=== PATIENT | male | born 1965 | race Caucasian/White ===

== ENCOUNTER 2020-04-04 14:34 | Inpatient (IN) | payer OTHER ==
[2020-04-04] MEDS ORDERED: ARICEPT5 M1 PO (16:00)
[2020-04-04] MEDS ORDERED: ACIDOPHILUS-PE1 EAC2 PO (16:00)
[2020-04-04] MEDS ORDERED: BENADRYL25 M2 PO (16:01)
[2020-04-04] MEDS ORDERED: CELEXA20 MG PO (16:04)
[2020-04-04] MEDS ORDERED: CARDURA4 MG PO (16:05)
[2020-04-04] MEDS ORDERED: CYMBALTA60 MG PO (16:05)
[2020-04-04] MEDS ORDERED: FENOFIBRATE MI200 MG PO (16:06)
[2020-04-04] MEDS ORDERED: MULTIVITAMINS1 EAC5 PO (16:07)
[2020-04-04] MEDS ORDERED: NORTRIPTYLINE H50 M1 PO (16:08)
[2020-04-04] MEDS ORDERED: OMEPRAZOLE20 M2 PO (16:10)
[2020-04-04] MEDS ORDERED: FOLIXAPURE5000 UNIT PO (16:14)
[2020-04-04] MEDS ORDERED: BACLOFEN20 M1 PO (16:20)
[2020-04-04] MEDS ORDERED: TRULANCE PO (16:37)
[2020-04-04] MEDS ORDERED: OMNICEF300 MG PO (16:38)
[2020-04-04] MEDS ORDERED: NEURONTIN800 MG PO (16:42)
[2020-04-04] MEDS ORDERED: MIRALAX119 GM PO (16:42)
[2020-04-04] MEDS ORDERED: MACRODANTIN100 M1 PO (16:43)
[2020-04-04] MEDS ORDERED: ATARAX,VISTARIL50 MG PO (16:45)
[2020-04-04] MEDS ORDERED: CITROMA296 ML PO (16:52)
[2020-04-04] MEDS ORDERED: ZOFRAN4 MG PO (16:54)
[2020-04-04] MEDS ORDERED: IBUPROFEN600 MG PO (16:54)
[2020-04-04 17:22] VITALS: BP 113/63
[2020-04-04 19:49] VITALS: BP 115/64
[2020-04-05 06:45] LABS: ALBUMIN 3.6 gm/dl (3.1-4.5); ALKALINE PHOSPHATASE 141 U/L (45-117); BUN 20 mg/dl (7-24); CHLORIDE 111 mmol/L (98-107); CHOLESTEROL 247 mg/dL (<200); CREATININE 0.93 mg/dL (0.70-1.30); HDL CHOLESTEROL 58 mg/dl (40-60); LDL CHOLESTEROL 153 mg/dL (9-159); POTASSIUM 3.8 mmol/L (3.5-5.1); SGOT/AST 37 IU/L (3-35); SGPT/ALT 53 U/L (12-78); SODIUM 143 mmol/L (136-145); TOTAL PROTEIN 7.3 gm/dL (6.4-8.2); TRIGLYCERIDES 178 mg/dl (<150); VLDL CHOLESTEROL 36 mg/dL (6-40)
[2020-04-05 07:53] VITALS: BP 110/64
[2020-04-05 13:33] LABS: BILIRUBIN 1+ (Negative); BLOOD Negative (Negative); CLARITY Clear (Clear); COLOR Dark Yellow (Yellow); GLUCOSE Negative (Negative); KETONE Negative (Negative); LEUKO ESTERASE Trace (Negative); NITRITE Negative (Negative); SPECIFIC GRAVITY 1.025 (1.001-1.030)
[2020-04-05 13:42] LABS: BACTERIA TRACE; EPITHELIAL CELLS 0-2; MUCOUS 3+
[2020-04-05 20:00] VITALS: BP 105/65
[2020-04-06 07:42] VITALS: BP 156/79
[2020-04-06] MEDS ORDERED: OMNICEF300 MG PO (08:48)
[2020-04-06 19:08] VITALS: BP 131/67
[2020-04-07 08:00] VITALS: BP 110/67
[2020-04-07 20:38] VITALS: BP 120/72
[2020-04-08 07:41] VITALS: BP 130/75
[2020-04-08 20:00] VITALS: BP 112/78
[2020-04-09 08:42] VITALS: BP 118/81
[2020-04-09 09:07] LABS: NEURONTIN (GABAPENTIN) 18.8 ug/mL (4.0-16.0)
[2020-04-09 19:54] VITALS: BP 129/89
[2020-04-10 07:43] VITALS: BP 127/69
[2020-04-10 20:00] VITALS: BP 104/58
[2020-04-11 07:50] VITALS: BP 110/64
[2020-04-11 18:53] VITALS: BP 106/57
[2020-04-12 06:57] VITALS: BP 109/58
[2020-04-12 20:00] VITALS: BP 129/82
[2020-04-13 07:26] VITALS: BP 116/88
[2020-04-13 19:10] VITALS: BP 123/75
[2020-04-14 06:32] LABS: BUN 19 mg/dl (7-24); CHLORIDE 109 mmol/L (98-107); CREATININE 0.84 mg/dL (0.70-1.30); POTASSIUM 4.3 mmol/L (3.5-5.1); SODIUM 141 mmol/L (136-145)
[2020-04-14 07:46] VITALS: BP 117/66
[2020-04-14 11:09] LABS: BILIRUBIN Negative (Negative); BLOOD Negative (Negative); CLARITY Clear (Clear); COLOR Yellow (Yellow); GLUCOSE Negative (Negative); KETONE Negative (Negative); LEUKO ESTERASE Negative (Negative); NITRITE Negative (Negative); SPECIFIC GRAVITY 1.025 (1.001-1.030)
[2020-04-14 11:49] LABS: RBC 0-2 rbc/hpf (0-2); WBC 0-2 wbc/hpf (0-5)
[2020-04-14 19:18] VITALS: BP 101/75
[2020-04-15 07:40] VITALS: BP 124/82
[2020-04-15 19:30] VITALS: BP 102/58
[2020-04-16 08:00] VITALS: BP 133/51
[2020-04-16] MEDS ORDERED: SEROQUEL25 MG PO ×2 (12:33→13:01)
[2020-04-16] MEDS ORDERED: SEROQUEL50 MG PO (12:34)
[2020-04-16] MEDS ORDERED: TAGAMET HB200 M1 PO (12:39)
== END 2020-04-16 14:50 | disposition other institution (70) | DRG 758 ==
LOC: 3N 14:34
PROVIDERS: Counselor Professional; Internal Medicine; ADMIT Psychiatry & Neurology Psychiatry; ATTEND Psychiatry & Neurology Psychiatry
DX: F63.81 Intermittent explosive disorder (principal); K21.9 Gastro-esophageal reflux disease without esophagitis; G62.9 Polyneuropathy, unspecified; K58.9 Irritable bowel syndrome, unspecified; G80.9 Cerebral palsy, unspecified; F33.2 Major depressive disorder, recurrent severe without psychotic features; F43.10 Post-traumatic stress disorder, unspecified; R73.9 Hyperglycemia, unspecified; R74.01 Elevation of levels of liver transaminase levels; R74.8 Abnormal levels of other serum enzymes; Z20.828 Contact with and (suspected) exposure to other viral communicable diseases; E87.8 Other disorders of electrolyte and fluid balance, not elsewhere classified; E78.5 Hyperlipidemia, unspecified; K59.00 Constipation, unspecified; E55.9 Vitamin D deficiency, unspecified; F60.9 Personality disorder, unspecified; F41.9 Anxiety disorder, unspecified; F03.90 Unspecified dementia, unspecified severity, without behavioral disturbance, psychotic disturbance, mood disturbance, and anxiety; G40.909 Epilepsy, unspecified, not intractable, without status epilepticus; Z90.49 Acquired absence of other specified parts of digestive tract; Z88.5 Allergy status to narcotic agent; Z88.8 Allergy status to other drugs, medicaments and biological substances; Z91.018 Allergy to other foods